=== PATIENT | male | born 1975 | race Caucasian/White ===

== ENCOUNTER 2016-12-09 22:02 | Emergency (ER) | payer OTHER ==
[2016-12-09] MEDS ORDERED: Ibuprofen TAB* 400 MG PO ONE (23:41)
[2016-12-09] MEDS ORDERED: Tetan/Diph/Pertus SYR(Tdap)* 0.5 ML SYR(BOOSTRIX) use SYR IM ONE (23:41)
[2016-12-10] MEDS ORDERED: oxyCODONE/Acetamin 5/325 MG* TAB PO ONE ×2 (00:42→01:32)
--- NOTE | 2016-12-10 01:19 | ED ---
Laceration/Wound HPI - History of Current Complaint Stated Complaint: RIGHT HAND LAC Time Seen by Provider: 12/09/16 23:29 Pain Intensity: 8 - Allergy/Home Medications Allergies/Adverse Reactions: Allergies Allergy/AdvReac Type Severity Reaction Status Date / Time No Known Allergies Allergy Verified 12/09/16 22:09 PMH/Surg Hx/FS Hx/Imm Hx Infectious Disease History: No Infectious Disease History: Denies: Traveled Outside the [place] in Last 30 Days - Social History Substance Use Type: Reports: None Physical Exam Vital Signs On Initial Exam: Initial Vitals Temp Pulse Resp BP Pulse Ox 97.7 F 99 16 123/85 98 12/09/16 22:04 12/09/16 22:04 12/09/16 22:04 12/09/16 22:04 12/09/16 22:04 Procedures - Splinting Location: right hand Hand-Made Type: orthoglass Splint: volar Pre-Proc Neuro Vasc Exam: normal Post-Proc Neuro Vasc Exam: normal - Laceration/Wound Repair 1 Location: upper extremity - right hand Description: Linear Anesthesia: Local, 2.0%, Lido Length, Depth and Shape: 3 cm long, 3mm wide, 3mm deep Betadine Prep?: No Irrigated w/ Saline (ccs): 500 Laceration/Wound Explored: clean Closure: Single Layer Debridement: minimal Suture Type: Nylon - 4.0 Number of Sutures: 13 Layer Closure?: No Sterile Dressing Applied?: Yes Diagnostics - Vital Signs Vital Signs Temp Pulse Resp BP Pulse Ox 12/10/16 00:51 16 12/09/16 22:04 97.7 F 99 16 123/85 98 - Laboratory Lab Statement: Any lab studies that have been ordered have been reviewed, and results considered in the medical decision making process.
[2016-12-10 01:49] VITALS: BP 124/79
--- NOTE | 2016-12-10 07:54 | RAD ---
INDICATION: And laceration after punching a wall COMPARISON: None. TECHNIQUE: 4 views of the right hand were obtained. FINDINGS: Depicted best on the AP view there are minimally displaced fractures involving the proximal metaphysis of the third metacarpal and the fourth metacarpal proximal head. A small degree of dorsal angulation can be seen on the oblique view. Remaining visualized bones are intact and appropriately aligned. IMPRESSION: Minimally displaced fractures involving the proximal third and fourth metacarpals.
== END 2016-12-10 01:48 | disposition home or self-care (01) ==
LOC: ED 22:02
DX: S62.302A Unspecified fracture of third metacarpal bone, right hand, initial encounter for closed fracture (principal); S61.411A Laceration without foreign body of right hand, initial encounter; W22.8XXA Striking against or struck by other objects, initial encounter; Y92.9 Unspecified place or not applicable; S62.304A Unspecified fracture of fourth metacarpal bone, right hand, initial encounter for closed fracture
CPT/HCPCS: 12001; 90471; 90715; 99283; A9270-GY